=== PATIENT | male | born 1975 | race Caucasian/White ===

== ENCOUNTER → 2023-07-14 14:31 | Outpatient (REF) | payer OTHER, SELFPAY | LOC: HWRAD 14:31 | PROVIDERS: ATTENDING PHYSICIAN Physician Assistant | DX: R10.32 Left lower quadrant pain (principal); R19.5 Other fecal abnormalities | CPT/HCPCS: 74177; Q9967 ==

== ENCOUNTER → 2023-09-01 06:34 | Day surgery (SDC) | payer OTHER, SELFPAY | LOC: GI 06:34 | PROVIDERS: ATTENDING PHYSICIAN Internal Medicine Gastroenterology | DX: K64.8 Other hemorrhoids (principal); R10.32 Left lower quadrant pain; R93.3 Abnormal findings on diagnostic imaging of other parts of digestive tract; Z87.19 Personal history of other diseases of the digestive system | CPT/HCPCS: 45378 ==

== ENCOUNTER → 2025-02-14 08:00 | Outpatient (REF) | payer OTHER, SELFPAY | LOC: RAD 08:00 | PROVIDERS: ATTENDING PHYSICIAN Internal Medicine Cardiovascular Disease; FAMILY PHYSICIAN Family Medicine | DX: R00.2 Palpitations (principal); E04.9 Nontoxic goiter, unspecified | CPT/HCPCS: 76536 ==